=== PATIENT | female | born 1955 | race Caucasian/White ===

== ENCOUNTER 2025-05-30 11:54 | Emergency (ER) | payer MEDICARE ==
--- NOTE | 2025-05-30 12:27 | ED ---
General Adult HPI - General Chief complaint: Upper Respiratory Infection Stated complaint: Cough Time Seen by Provider: 05/30/25 12:26 Source: patient, family, RN notes reviewed Mode of arrival: ambulatory Limitations: no limitations, language barrier (leonnet is hard of hearing) - History of Present Illness Initial comments: 70-year-old female presented the ER for evaluation of cough and fevers. Patient is extremely hard of hearing and family is aiding in HPI. For the past week patient has felt unwell with a cough, congestion and sinus pressure. Patient also reports intermittent fevers. She has tried [id number] throat spray along with sinus medication without relief of her symptoms. Patient reports it is a dry cough. She denies any chest pain, shortness of breath or wheezing. Patient denies any nausea, vomiting, abdominal pain, constipation/diarrhea, dysuria, hematuria or increase in urinary frequency. Patient is a non-smoker. Denies headache. - Related Data Previous Rx's Medication Instructions Recorded Benzonatate [Tessalon Perles] 100 mg PO TID PRN #15 capsule 05/30/25 metFORMIN HCL 500 mg PO BID 10 Days #20 tablet 05/30/25 Allergies Allergy/AdvReac Type Severity Reaction Status Date / Time No Known Allergies Allergy Verified 05/30/25 11:59 Review of Systems ROS Statement: Those systems with pertinent positive or pertinent negative responses have been documented in the HPI. ROS Other: All systems not noted in ROS Statement are negative. Past Medical History Additional Past Medical History / Comment(s): Hearing loss, History of Any Multi-Drug Resistant Organisms: None Reported Past Surgical History: No Surgical Hx Reported Past Psychological History: No Psychological Hx Reported Smoking Status: Never smoker Past Alcohol Use History: None Reported Past Drug Use History: None Reported General Exam Limitations: no limitations General appearance: alert, in no apparent distress ENT exam: Present: normal exam, normal oropharynx, mucous membranes moist, normal external ear exam, other (Right tympanic membrane chronic perforation. No purulent drainage or erythema noted. Left tympanic membrane unremarkable.) Neck exam: Present: normal inspection. Absent: tenderness, meningismus, lymphadenopathy Respiratory exam: Present: normal lung sounds bilaterally. Absent: respiratory distress, wheezes, rales, rhonchi, stridor Cardiovascular Exam: Present: regular rate, normal rhythm, normal heart sounds. Absent: systolic murmur, diastolic murmur, rubs, gallop, clicks GI/Abdominal exam: Present: soft, normal bowel sounds. Absent: distended, tenderness, guarding, rebound, rigid Extremities exam: Present: normal inspection, full ROM, normal capillary refill. Absent: tenderness, pedal edema, joint swelling, calf tenderness Neurological exam: Present: alert, oriented X3, CN II-XII intact Skin exam: Present: warm, dry, intact, normal color. Absent: rash Course Vital Signs 05/30/25 05/30/25 05/30/25 11:56 12:13 14:21 Temperature 97.5 F L 98.3 F Pulse Rate 115 H 87 Respiratory 20 22 20 Rate Blood Pressure 154/70 109/70 O2 Sat by Pulse 94 L 98 Oximetry 05/30/25 05/30/25 14:24 15:11 Temperature 97.9 F 97.9 F Pulse Rate 65 76 Respiratory 20 20 Rate Blood Pressure 170/82 168/80 O2 Sat by Pulse 99 99 Oximetry Medical Decision Making - Medical Decision Making Was pt. sent in by a medical professional or institution (Dr. PA, ORTHOPEDIC CODER, urgent care, hospital, or retirement...) When possible be specific @ -No Did you speak to anyone other than the patient for history (EMS, parent, family, police, friend...)? What history was obtained from this source @ -Son, bedside, aiding in HPI and past medical history as patient is hard of hearing Did you review nursing and triage notes (agree or disagree)? Why? @ -I reviewed and agree with nursing and triage notes Were old charts reviewed (outside hosp., previous admission, EMS record, old EKG, old radiological studies, urgent care reports/EKG's, retirement records)? Report findings @ -No old charts were reviewed Differential Diagnosis (chest pain, altered mental status, abdominal pain women, abdominal pain men, vaginal bleeding, weakness, fever, dyspnea, syncope, headache, dizziness, GI bleed, back pain, seizure, CVA, palpatations, mental health, musculoskeletal)? @ -[Differential Weakness:Hypoglycemia, shock, sepsis, hyponatremia, anemia, infection, LA, ETOH, adverse medicine reaction, overdose, stroke, this is not meant to be an all-inclusive list. EKG interpreted by me (3pts min.). @ -As above X-rays interpreted by me (1pt min.). @ -CXR interpreted by negative for focal consolidation or pneumothorax. CT interpreted by me (1pt min.). @ -None done U/S interpreted by me (1pt. min.). @ -None done What testing was considered but not performed or refused? (CT, X-rays, U/S, labs)? Why? @ -None What meds were considered but not given or refused? Why? @ -None Did you discuss the management of the patient with other professionals (professionals i.e. , PA, ORTHOPEDIC CODER, lab, RT, psych nurse, social work manager, manager organizational, teacher, security patrol officer, case management director)? Give summary @ -No Was smoking cessation discussed for >3mins.? @ -No Was critical care preformed (if so, how long)? @ -No Were there social determinants of health that impacted care today? How? (Homelessness, low income, unemployed, alcoholism, drug addiction, transportation, low edu. Level, literacy, decrease access to med. care, senior care, rehab)? @ -Patient does not have establish care with primary care physician. This limits patient's ability to follow-up outpatient Was there de-escalation of care discussed even if they declined (Discuss DNR or withdrawal of care, Hospice)? DNR status @ -No What co-morbidities impacted this encounter? (DM, HTN, Smoking, COPD, CAD, Cancer, CVA, ARF, Chemo, Hep., AIDS, mental health diagnosis, sleep apnea, morbid obesity)? @ -None Was patient admitted / discharged? Hospital course, mention meds given and route, prescriptions, significant lab abnormalities, going to OR and other pertinent info. @ -Discharge. 62-year-old female presented ER for evaluation of cough and fevers x 1 week. Upon arrival, patient mildly tachycardic at 115 bpm vitals otherwise within acceptable limits. During examination patient is well- appearing and no signs of acute distress. Patient is hard of hearing and son is aiding with communication. Lung sounds are clear throughout all lung gibson. Laboratory studies obtained remarkable for WBC of 10.9, lactic 2.1. Hyperglycemia 227 this appears to be new onset. Viral swabs negative. Urine analysis with trace glucose and trace protein. EKG showing a sinus rhythm. Patient provided with IV fluids along with Tylenol and Tessalon Perles for symptom control emergency department. Symptoms suspected to be related to new onset diabetes for which patient will be started on metformin. First dose in the emergency department. Upon reevaluation, patient reported improvement of symptoms. Patient and son educated on today's findings and all questions answered. Anitasalon Perles and metformin prescribed. Advise close follow-up wit h PCP. Contact information provided for local PCPs and residency clinics. Strict return parameters discussed. Patient discharged in stable condition. Patient and patient's son verbally expressed understanding agree with care plan. Case discussed with the attending of Dr. Doshi. Undiagnosed new problem with uncertain prognosis? @ -No Drug Therapy requiring intensive monitoring for toxicity (Heparin, Nitro, Insulin, Cardizem)? @ -No Were any procedures done? @ -No Diagnosis/symptom? @ -New onset diabetes mellitus/cough Acute, or Chronic, or Acute on Chronic? @ -Acute Uncomplicated (without systemic symptoms) or Complicated (systemic symptoms)? @ -Complicated Side effects of treatment? @ -No Exacerbation, Progression, or Severe Exacerbation? @ -No Poses a threat to life or bodily function? How? (Chest pain, USA, LA, pneumonia, PE, COPD, DKA, ARF, appy, cholecystitis, CVA, Diverticulitis, Homicidal, Suicidal, threat to staff... and all critical care pts) @ -Low at this time - Lab Data Result diagrams: 05/30/25 12:43 05/30/25 12:43 Lab Results 05/30/25 05/30/25 05/30/25 Range/Units 12:43 12:43 12:43 WBC 10.90 H (4.50-10.00) 10*3/uL RBC 4.72 (4.10-5.20) 10*6/uL Hgb 14.6 (12.0-15.0) g/dL Hct 42.6 (37.2-46.3) % MCV 90.3 (80.0-97.0) fL MCH 30.9 (27.0-32.0) pg MCHC 34.3 (32.0-37.0) g/dL Plt Count 166 (140-440) 10*3/uL MPV 11.7 (9.5-12.2) fL Immature Gran % (Auto) 0.4 % Neutrophils % 69.6 % Lymphocytes % 18.2 % Monocytes % 8.6 % Eosinophils % 2.7 % Basophils % 0.5 % Immature Gran # 0.04 (0.00-0.04) 10*3/uL Neutrophils # 7.60 (1.80-7.70) 10*3/uL Lymphocytes # 1.98 (0.90-5.00) 10*3/uL Monocytes # 0.94 (0.20-1.00) 10*3/uL Eosinophils # 0.29 (0.04-0.35) 10*3/uL Basophils # 0.05 (0.00-0.10) 10*3/uL Sodium 140 (137-145) mmol/L Potassium 3.6 (3.5-5.1) mmol/L Chloride 105 (98-107) mmol/L Carbon Dioxide 24 (22-30) mmol/L Anion Gap 11 mmol/L BUN 15 (7-17) mg/dL Creatinine 0.50 L (0.52-1.04) mg/dL Est GFR (CKD-EPI)AfAm >90 (>60 ml/min/1.73 sqM) Est GFR (CKD-EPI)NonAf >90 (>60 ml/min/1.73 sqM) Glucose 227 H (74-99) mg/dL Lactic Ac Sepsis Rflx Plasma Lactic Acid Jose Miguel (0.7-2.0) mmol/L Calcium 8.8 (8.4-10.2) mg/dL Total Bilirubin 0.9 (0.2-1.3) mg/dL AST 20 (14-36) U/L ALT 13 (4-34) U/L Alkaline Phosphatase 87 (38-126) U/L Total Protein 6.5 (6.3-8.2) g/dL Albumin 3.3 L (3.5-5.0) g/dL Urine Color Urine Appearance (Clear) Urine pH (5.0-8.0) Ur Specific Beals (1.001-1.035) Urine Protein (Negative) Urine Glucose (UA) (Negative) Urine Ketones (Negative) Urine Blood (Negative) Urine Nitrite (Negative) Urine Bilirubin (Negative) Urine Urobilinogen (<2.0) mg/dL Ur Leukocyte Esterase (Negative) Urine RBC (0-5) /hpf Urine WBC (0-5) /hpf Ur Squamous Epith Cells (0-4) /hpf Urine Bacteria (None) /hpf Urine Mucus (None) /hpf Influenza Type A (PCR) Not Detected (Not Detectd) Influenza Type B (PCR) Not Detected (Not Detectd) RSV (PCR) Not Detected (Not Detectd) SARS-CoV-2 (PCR) Not Detected (Not Detectd) 05/30/25 05/30/25 05/30/25 Range/Units 12:43 13:11 13:38 WBC (4.50-10.00) 10*3/uL RBC (4.10-5.20) 10*6/uL Hgb (12.0-15.0) g/dL Hct (37.2-46.3) % MCV (80.0-97.0) fL MCH (27.0-32.0) pg MCHC (32.0-37.0) g/dL Plt Count (140-440) 10*3/uL MPV (9.5-12.2) fL Immature Gran % (Auto) % Neutrophils % % Lymphocytes % % Monocytes % % Eosinophils % % Basophils % % Immature Gran # (0.00-0.04) 10*3/uL Neutrophils # (1.80-7.70) 10*3/uL Lymphocytes # (0.90-5.00) 10*3/uL Monocytes # (0.20-1.00) 10*3/uL Eosinophils # (0.04-0.35) 10*3/uL Basophils # (0.00-0.10) 10*3/uL Sodium (137-145) mmol/L Potassium (3.5-5.1) mmol/L Chloride (98-107) mmol/L Carbon Dioxide (22-30) mmol/L Anion Gap mmol/L BUN (7-17) mg/dL Creatinine (0.52-1.04) mg/dL Est GFR (CKD-EPI)AfAm (>60 ml/min/1.73 sqM) Est GFR (CKD-EPI)NonAf (>60 ml/min/1.73 sqM) Glucose (74-99) mg/dL Lactic Ac Sepsis Rflx Y Plasma Lactic Acid Jose Miguel 2.1 H* (0.7-2.0) mmol/L Calcium (8.4-10.2) mg/dL Total Bilirubin (0.2-1.3) mg/dL AST (14-36) U/L ALT (4-34) U/L Alkaline Phosphatase (38-126) U/L Total Protein (6.3-8.2) g/dL Albumin (3.5-5.0) g/dL Urine Color Yellow Urine Appearance Cloudy H (Clear) Urine pH 5.0 (5.0-8.0) Ur Specific Beals 1.032 (1.001-1.035) Urine Protein Trace H (Negative) Urine Glucose (UA) Trace H (Negative) Urine Ketones Negative (Negative) Urine Blood Trace H (Negative) Urine Nitrite Negative (Negative) Urine Bilirubin Negative (Negative) Urine Urobilinogen 2.0 (<2.0) mg/dL Ur Leukocyte Esterase Negative (Negative) Urine RBC 1 (0-5) /hpf Urine WBC 2 (0-5) /hpf Ur Squamous Epith Cells 2 (0-4) /hpf Urine Bacteria Few H (None) /hpf Urine Mucus Occasional H (None) /hpf Influenza Type A (PCR) (Not Detectd) Influenza Type B (PCR) (Not Detectd) RSV (PCR) (Not Detectd) SARS-CoV-2 (PCR) (Not Detectd) - Radiology Data Radiology results: report reviewed, image reviewed Disposition Clinical Impression: Diabetes mellitus Disposition: HOME SELF-CARE Condition: Stable Instructions (If sedation given, give patient instructions): Type 2 Diabetes in Adults: New Diagnosis (DC) Additional Instructions: Follow-up with PCP and/or residency clinic. Start taking metformin twice daily as prescribed. Be aware this medication may cause diarrhea. Return to the ER for any new or worsening interns. I also recommend [id number] nasal lavage to aid with postnasal drip. Prescriptions: metFORMIN HCL 500 mg PO BID 10 Days #20 tablet Benzonatate [Tessalon Perles] 100 mg PO TID PRN #15 capsule PRN Reason: Cough Is patient prescribed a controlled substance at d/c from ED?: No Referrals: None,Stated [Primary Care Provider] - 1-2 days [facility] [NON-STAFF] - 1-2 days [facility] Family[facility] [NON-STAFF] - 1-2 days Forms: PH Area PCPs Time of Disposition: 14:55
[2025-05-30] MEDS: ACETAMINOPHEN TAB 325 MG TAB PO STA (12:41)
[2025-05-30] MEDS: BENZONATATE 100 MG CAP PO STA (12:42)
[2025-05-30] MEDS: SODIUM CHLORIDE 0.9% 1,000 ML IV ONE (12:42)
[2025-05-30 13:06] LABS: ALT 13 U/L (4-34); AST 20 U/L (14-36); African American GFR (CKD) >90 (>60 ml/min/1.73 sqM); Albumin 3.3 g/dL (3.5-5.0); Alkaline Phosphatase 87 U/L (38-126); Anion Gap 11 mmol/L; Blood Urea Nitrogen 15 mg/dL (7-17); Calcium 8.8 mg/dL (8.4-10.2); Carbon Dioxide 24 mmol/L (22-30); Chloride 105 mmol/L (98-107); Glucose 227 mg/dL (74-99); Non-African American GFR(CKD) >90 (>60 ml/min/1.73 sqM); Potassium 3.6 mmol/L (3.5-5.1); Sodium 140 mmol/L (137-145); Total Protein 6.5 g/dL (6.3-8.2)
[2025-05-30 13:19] LABS: Basophils # (A) 0.05 10*3/uL (0.00-0.10); Basophils % (A) 0.5 %; Eosinophils # (A) 0.29 10*3/uL (0.04-0.35); Eosinophils % (A) 2.7 %; HCT 42.6 % (37.2-46.3); HGB 14.6 g/dL (12.0-15.0); Lymphocytes # (A) 1.98 10*3/uL (0.90-5.00); Lymphocytes % (A) 18.2 %; MCH 30.9 pg (27.0-32.0); MCHC 34.3 g/dL (32.0-37.0); MCV 90.3 fL (80.0-97.0); Monocytes # (A) 0.94 10*3/uL (0.20-1.00); Monocytes % (A) 8.6 %; Neutrophils # (A) 7.60 10*3/uL (1.80-7.70); Neutrophils % (A) 69.6 %; Platelet Count 166 10*3/uL (140-440); RBC 4.72 10*6/uL (4.10-5.20); RDW 12.0 % (11.5-14.5); WBC 10.90 10*3/uL (4.50-10.00)
[2025-05-30 13:27] LABS: RSV Not Detected (Not Detectd)
[2025-05-30 13:57] LABS: Bacteria,Urine Few /hpf; Bilirubin,Urine Negative (Negative); Blood,Urine Trace (Negative); Color,Urine Yellow; Glucose,Urine (UA) Trace (Negative); Ketones,Urine Negative (Negative); Leukocyte Esterase,Urine Negative (Negative); Mucus,Urine Occasional /hpf; Nitrite,Urine Negative (Negative); PH, Urine 5.0 (5.0-8.0); Protein,Urine Trace (Negative); RBC,Urine 1 /hpf (0-5); Specific Gravity,Urine 1.032 (1.001-1.035); Squamous Epithelial Cell,Urine 2 /hpf (0-4); Urobilinogen,Urine 2.0 mg/dL (<2.0); WBC,Urine 2 /hpf (0-5)
[2025-05-30 14:22] VITALS: RESP 20
[2025-05-30 14:25] VITALS: TEMP 97.9
--- NOTE | 2025-05-30 14:32 | XR ---
EXAMINATION TYPE: XR chest 2V DATE OF EXAM: 05/30/2025 2:01 PM COMPARISON: None CLINICAL INDICATION: Female, 70 years old with history of cough and fever, , TECHNIQUE: AP and lateral views FINDINGS: Heart upper limits of normal in size. Mild interstitial prominence may be technical. No consolidation or pleural effusion. IMPRESSION: Mild interstitial prominence which may be technical due to AP technique. Correlate to exclude bronchi tis or asthma. [facility], Workstation: [email or web address], 05/30/2025 2:30 PM
[2025-05-30] MEDS: metFORMIN 500 MG TAB PO STA (15:07)
[2025-05-30 15:13] VITALS: BP 168/80; PULSE 76
== END 2025-05-30 15:12 | disposition home or self-care (01) ==
LOC: EC 11:54
DX: E11.9 Type 2 diabetes mellitus without complications (principal)
CPT/HCPCS: 36415; 71046; 80053; 81001; 83605; 85025; 87636; 93005; 96360; 99284